=== PATIENT | female | born 1985 | race Caucasian/White ===

== ENCOUNTER 2017-02-16 20:48 | Emergency (ER) | payer SELFPAY ==
[~2017-02-16 20:48] MED LIST: PERC5TAB12 PO; ZOFR8TAB PO
[2017-02-16 20:50] VITALS: BP 134/79; PULSE 74; RESP 13; TEMP 98.5; O2SAT 100
[2017-02-16] MEDS ORDERED: LEVO500T8 PO (22:53)
[2017-02-16] MEDS ORDERED: PRED20 PO (22:54)
[2017-02-16] MEDS ORDERED: PRIL20TA2 (22:55)
--- NOTE | 2017-02-16 23:20 | PD ---
HPI Chief Complaint: Chest Pain Time Seen by Provider: 23:06 Travel History International Travel<30 days: No Contact w/Intl Traveler<30days: No Traveled to known affect area: No History of Present Illness HPI 31-year-old female presents to emergency department accompanied by her for evaluation of cough and chest pain. The patient is been sick now for over a week. She was seen at [facility] and was prescribed Levaquin, Pepcid, prednisone and albuterol. They informed the patient that her symptoms were most likely related to asthma. The patient here is concerned that she's been having persistent discomfort and has not had any improvement of her symptoms. She has not been taking her medications as she has been prescribed. The patient denies any anginal type pain. She denies any associated diaphoresis, nausea or vomiting. Patient does not smoke or drink. No history of hypertension or diabetes. She does not take control. No calf pain or swelling. [facility] Past Medical History Medical History: Denies Significant Hx Diminished Hearing: No Tetanus Vaccination: < 5 Years ?: Unknown Para: 1 Past Surgical History Section: Yes Social History Alcohol Use: No Tobacco Use: No Substance Use: No Allergies-Medications (Allergen,Severity, Reaction): Coded Allergies: No Known Allergies (Unverified , 02/16/17) Reported Meds & Prescriptions Reported Meds & Active Scripts Active Reported Prilosec (Omeprazole Magnesium) 20 Mg Tab Prednisone 20 Mg Tab 20 Mg PO TID Levofloxacin 500 Mg Tablet 500 Mg PO DAILY Review of Systems Except as stated in HPI: all other systems reviewed are Neg Physical Exam Narrative GENERAL: Well-developed, well-nourished in no acute distress. Nontoxic appearing. HEAD: Normocephalic, atraumatic. EYES: Pupils equal round and reactive. Extraocular motions intact. No scleral icterus. No injection or drainage. ENT: TMs clear without erythema. The external auditory canals clear. Nose: clear . Posterior pharynx is pink and moist. No tonsillar edema or exudate. Uvula midline. Airway patent. NECK: Trachea midline.Supple, nontender, moves head freely. No central bony tenderness or spasm. CARDIOVASCULAR: Regular rate and rhythm without murmurs, gallops, or rubs. CHEST: Positive tenderness to palpation of the anterior chest wall without deformity or crepitance. No retractions or use of accessory muscles. RESPIRATORY: Clear to auscultation. Breath sounds equal bilaterally. No wheezes , rales, or rhonchi. GASTROINTESTINAL: Abdomen soft, non-tender, nondistended. No hepato-splenomegaly , or palpable masses. No guarding. EXTREMITIES: No clubbing, cyanosis, or edema. No joint tenderness, effusion, or edema noted. No calf tenderness. No Homans sign. BACK: Nontender without deformity or crepitance. No flank tenderness. Data Data Last Documented VS Vital Signs Date Time Temp Pulse Resp B/P (MAP) Pulse Ox O2 Delivery O2 Flow Rate FiO2 02/16/17 20:50 98.5 74 13 134/79 (97) 100 Room Air MDM Medical Decision Making Medical Screen Exam Complete: Yes Emergency Medical Condition: Yes Medical Record Reviewed: Yes Interpretation(s) EKG shows NSR, no ST elevation or depression, and sinus arrhythmias. No significant T-wave inversions. Differential Diagnosis Differential diagnoses: Angina, bronchitis, chest wall pain, reactive airway disease, Narrative Course Patient's EKG is unremarkable for coronary disease. Patient's exam is revealing for chest wall tenderness and reactive airway disease. Patient is advised to continue her medications and follow-up with her doctor in 1 week. Diagnosis Primary Impression: Chest wall pain Additional Impression: Reactive airway disease Qualified Codes: J45.20 - Mild intermittent asthma, uncomplicated Patient Instructions: General Instructions Additional Instructions: Rest. Continue your medications as you have been prescribed. Use your inhaler 4 times daily. Follow-up with a primary care 3-7 days. Return to the ER for emergencies Med/Other Pt SpecificInfo: Prescription(s) given Disposition: 01 DISCHARGE HOME Condition: Stable Garret Cohen Feb 16, 2017 23:20
--- NOTE | 2017-02-17 14:21 | EKG ---
Date Performed: 02/16/2017 Time Performed: 22:50:38 PTAGE: 31 years EKG: Sinus rhythm WITH SINUS ARRHYTHMIA NORMAL ECG NO PREVIOUS TRACING DOCTOR: Jaya Carranza Interpretating Date/Time 02/17/2017 14:14:56
== END 2017-02-16 23:56 | disposition home or self-care (01) ==
LOC: NEPD 20:48
DX: R07.89 Other chest pain (principal); J45.20 Mild intermittent asthma, uncomplicated
CPT/HCPCS: 93005; 99282